=== PATIENT | female | born 1940 | race Caucasian/White ===

== ENCOUNTER 2022-07-24 11:35 | Inpatient (IN) | payer MEDICARE, OTHER ==
[2022-07-24] MEDS ORDERED: Magnesium Hydroxide 400 MG/5 ML Susp 30 ML Cup PO PRN (15:12)
[2022-07-24] MEDS ORDERED: Cyclobenzaprine 10 MG Tab PO PRN (15:12)
[2022-07-24] MEDS ORDERED: hydrOXYzine HCl 25 MG Tab PO PRN (15:12)
[2022-07-24] MEDS ORDERED: diphenhydrAMINE 25 MG Cap PO PRN (15:12)
[2022-07-24] MEDS: Acetaminophen/HYDROcodone 325-5 MG Tab PO PRN (15:46)
[2022-07-24] MEDS: Ascorbic Acid 500 MG Tab PO SCH (20:45)
[2022-07-24] MEDS ORDERED: Docusate Sodium 100 MG Cap PO SCH (21:00)
[2022-07-25 06:55] LABS: ANION GAP 14.9 mmol/L (5-15)
[2022-07-25] MEDS ORDERED: Bisacodyl 5 MG Tab PO PRN (08:20)
[2022-07-25] MEDS: Aspirin 81 MG Tab.EC PO SCH (08:23)
[2022-07-25] MEDS: Celecoxib 100 MG Cap PO SCH (08:24)
[2022-07-25] MEDS: Multivitamin Tab PO SCH (08:24)
[2022-07-25] MEDS: Docusate Sodium 100 MG Cap PO SCH (08:28)
[2022-07-25] MEDS ORDERED: Bisacodyl 5 MG Tab PO SCH (09:00)
[2022-07-25] MEDS ORDERED: Ferrous Sulfate 325 MG Tab PO SCH (09:00)
[2022-07-25] MEDS: Ascorbic Acid 500 MG Tab PO SCH ×2 (11:05→20:04)
[2022-07-25] MEDS: Acetaminophen 325 MG Tab PO PRN (15:40)
[2022-07-25] MEDS: Acetaminophen/HYDROcodone 325-5 MG Tab PO PRN (20:03)
[2022-07-26] MEDS: Acetaminophen/HYDROcodone 325-5 MG Tab PO PRN (06:27)
[2022-07-26] MEDS: Multivitamin Tab PO SCH (08:18)
[2022-07-26] MEDS: Celecoxib 100 MG Cap PO SCH (08:18)
[2022-07-26] MEDS: Docusate Sodium 100 MG Cap PO SCH (08:18)
[2022-07-26] MEDS: Aspirin 81 MG Tab.EC PO SCH (08:18)
[2022-07-26] MEDS: Ascorbic Acid 500 MG Tab PO SCH ×2 (08:18→20:05)
[2022-07-26] MEDS: Acetaminophen 325 MG Tab PO PRN ×2 (13:09→20:05)
[2022-07-27] MEDS: Celecoxib 100 MG Cap PO SCH (08:08)
[2022-07-27] MEDS: Aspirin 81 MG Tab.EC PO SCH (08:08)
[2022-07-27] MEDS: Ascorbic Acid 500 MG Tab PO SCH ×2 (08:08→20:46)
[2022-07-27] MEDS: Multivitamin Tab PO SCH (08:08)
[2022-07-27] MEDS: Docusate Sodium 100 MG Cap PO SCH (08:08)
[2022-07-27] MEDS: Acetaminophen 325 MG Tab PO PRN ×2 (16:15→20:47)
[2022-07-28] MEDS: Ascorbic Acid 500 MG Tab PO SCH ×2 (09:37→20:17)
[2022-07-28] MEDS: Celecoxib 100 MG Cap PO SCH (09:37)
[2022-07-28] MEDS: Multivitamin Tab PO SCH (09:37)
[2022-07-28] MEDS: Aspirin 81 MG Tab.EC PO SCH (09:37)
[2022-07-28] MEDS: Docusate Sodium 100 MG Cap PO SCH (09:37)
[2022-07-28] MEDS: Acetaminophen 325 MG Tab PO PRN ×2 (09:43→20:18)
[2022-07-29 07:29] LABS: ANION GAP 13.8 mmol/L (5-15)
[2022-07-29] MEDS: Multivitamin Tab PO SCH (08:29)
[2022-07-29] MEDS: Aspirin 81 MG Tab.EC PO SCH (08:29)
[2022-07-29] MEDS: Docusate Sodium 100 MG Cap PO SCH (08:29)
[2022-07-29] MEDS: Ascorbic Acid 500 MG Tab PO SCH ×2 (08:29→20:32)
[2022-07-29] MEDS: Celecoxib 100 MG Cap PO SCH (08:29)
[2022-07-29] MEDS: Acetaminophen 325 MG Tab PO PRN ×2 (13:47→20:32)
[2022-07-30] MEDS: Aspirin 81 MG Tab.EC PO SCH (08:27)
[2022-07-30] MEDS: Docusate Sodium 100 MG Cap PO SCH (08:27)
[2022-07-30] MEDS: Ascorbic Acid 500 MG Tab PO SCH (08:27)
[2022-07-30] MEDS: Multivitamin Tab PO SCH (08:27)
[2022-07-30] MEDS: Celecoxib 100 MG Cap PO SCH (08:27)
== END 2022-07-30 10:10 | disposition home or self-care (01) | DRG 948 ==
LOC: VM.MS 11:43
PROVIDERS: ADMIT Family Medicine; ATTEND Family Medicine
DX: R53.1 Weakness (principal); D50.0 Iron deficiency anemia secondary to blood loss (chronic); F41.9 Anxiety disorder, unspecified; G43.909 Migraine, unspecified, not intractable, without status migrainosus; Z47.1 Aftercare following joint replacement surgery; Z96.651 Presence of right artificial knee joint; R73.9 Hyperglycemia, unspecified; I10 Essential (primary) hypertension; E78.5 Hyperlipidemia, unspecified; M54.2 Cervicalgia; G89.29 Other chronic pain; E78.00 Pure hypercholesterolemia, unspecified; R41.0 Disorientation, unspecified; Z90.49 Acquired absence of other specified parts of digestive tract; Z79.82 Long term (current) use of aspirin; Z79.899 Other long term (current) drug therapy
CPT/HCPCS: 36415; 80048; 80053; 81001; 85025; 97110-GP; 97116-GP; 97161-GP; 97165-GO; 97530-GO; 97535-GO; A9270-GY

== ENCOUNTER 2023-11-06 08:27 | Emergency (ER) | payer MEDICARE, OTHER ==
[2023-11-06 09:35] LABS: BASOPHILS PERCENT AUTO 0.3 % (0.2-1.2); EOSINOPHILS ABSOLUTE AUTO 0.3 x10^3/uL (0.0-0.5); HEMATOCRIT 43.9 % (33.0-47.0); HEMOGLOBIN 14.4 g/dL (12.0-16.0); IMMATURE GRAN ABSOLUTE AUTO 0.04 x10^3/uL (0.00-0.07); LYMPHOCYTES ABSOLUTE AUTO 1.5 x10^3/uL (1.0-4.8); LYMPHOCYTES PERCENT AUTO 11.9 % (25.0-50.0); MEAN CORPUSCULAR HEMOGLOBIN 29.4 pg (26.0-32.0); MEAN CORPUSCULAR HGB CONC 32.8 g/dL (32.0-36.0); MEAN CORPUSCULAR VOLUME 89.6 fL (78.0-93.0); MONOCYTES ABSOLUTE AUTO 0.9 x10^3/uL (0.0-0.8); MONOCYTES PERCENT AUTO 6.8 % (2.0-11.0); NEUTROPHILS ABSOLUTE AUTO 10.1 x10^3/uL (1.8-7.7); NEUTROPHILS PERCENT AUTO 78.7 % (50.0-80.0); PLATELET COUNT,PLT 330 x10^3/uL (130-400); WHITE BLOOD CELL COUNT,WBC 12.9 x10^3/uL (4.0-10.0)
[2023-11-06 09:41] LABS: CORONAVIRUS COVID-19 NAA NEGATIVE (NEGATIVE); INFLUENZA A NAA NEGATIVE (NEGATIVE); INFLUENZA B NAA NEGATIVE (NEGATIVE); RESPIRATORY SYNCYTIAL VIR NAA NEGATIVE (NEGATIVE)
[2023-11-06 09:49] LABS: ANION GAP 13.2 mmol/L (5-15); CALCIUM 9.5 mg/dL (8.5-10.1); CREATININE 0.9 mg/dL (0.55-1.02); EST CRCL DRUG DOSING (CG) 38.77 mL/min; POTASSIUM,K 4.2 mmol/L (3.5-5.1)
[2023-11-06] MEDS: cefTRIAXone 1 GM Vial IM ONE (10:04)
== END 2023-11-06 10:20 | disposition home or self-care (01) ==
LOC: VM.ED 08:27
DX: J18.9 Pneumonia, unspecified organism (principal); Z88.8 Allergy status to other drugs, medicaments and biological substances; Z79.82 Long term (current) use of aspirin; Z79.899 Other long term (current) drug therapy
CPT/HCPCS: 0241U; 36415; 71046; 80048; 85025; 96372; 99283; J0696; 99284

== ENCOUNTER 2024-02-02 08:59 | Emergency (ER) | payer MEDICARE | END 2024-02-02 11:20 | disposition home or self-care (01) | LOC: VM.ED 08:59 → SUPCPDRO 08:59 → VM.ED 11:20 | DX: S46.912A Strain of unspecified muscle, fascia and tendon at shoulder and upper arm level, left arm, initial encounter (principal); S00.212A Abrasion of left eyelid and periocular area, initial encounter; Z88.8 Allergy status to other drugs, medicaments and biological substances; Z79.899 Other long term (current) drug therapy; Z79.82 Long term (current) use of aspirin; W19.XXXA Unspecified fall, initial encounter | CPT/HCPCS: 70450; 73030-LT; 99283; 99285 ==

== ENCOUNTER 2024-03-18 18:03 | Emergency (ER) | payer MEDICARE ==
[2024-03-18] MEDS ORDERED: Sodium Chloride 0.9% 10 ML Syringe FLUSH PRN (18:09)
[2024-03-18 18:25] LABS: BASOPHILS PERCENT AUTO 0.3 % (0.2-1.2); EOSINOPHILS ABSOLUTE AUTO 0.2 x10^3/uL (0.0-0.5); EOSINOPHILS PERCENT AUTO 1.6 % (0.0-4.0); HEMATOCRIT 42.4 % (33.0-47.0); HEMOGLOBIN 14.2 g/dL (12.0-16.0); LYMPHOCYTES PERCENT AUTO 17.1 % (25.0-50.0); MEAN CORPUSCULAR HGB CONC 33.5 g/dL (32.0-36.0); MEAN CORPUSCULAR VOLUME 89.6 fL (78.0-93.0); MONOCYTES ABSOLUTE AUTO 0.6 x10^3/uL (0.0-0.8); MONOCYTES PERCENT AUTO 5.3 % (2.0-11.0); NEUTROPHILS ABSOLUTE AUTO 8.6 x10^3/uL (1.8-7.7); NEUTROPHILS PERCENT AUTO 74.8 % (50.0-80.0); PLATELET COUNT,PLT 326 x10^3/uL (130-400); RED BLOOD CELL COUNT 4.73 x10^6/uL (4.00-5.50); WHITE BLOOD CELL COUNT,WBC 11.5 x10^3/uL (4.0-10.0)
[2024-03-18] MEDS: Ondansetron 4 MG/2 ML SDV IVPUSH ONE (18:46)
[2024-03-18] MEDS: Morphine 2 MG/ML SYRINGE IVPUSH ONE ×2 (18:46→20:04)
[2024-03-18 18:50] LABS: A/G RATIO 1.14; ALANINE AMINOTRANSFERASE,ALT 19 U/L (14-59); ALBUMIN 4.2 g/dL (3.4-5.0); ALKALINE PHOSPHATASE 84 U/L (46-116); ASPARTATE AMNIOTRANSFERASE,AST 19 U/L (15-37); BILIRUBIN TOTAL 1.4 mg/dL (0.2-1.0); BLOOD UREA NITROGEN,BUN 20 mg/dL (7-18); CALCIUM 9.4 mg/dL (8.5-10.1); CARBON DIOXIDE,CO2 26 mmol/L (21-32); CHLORIDE,CL 103 mmol/L (98-107); CREATININE 1.1 mg/dL (0.55-1.02); GLUCOSE RANDOM 118 mg/dL (70-99); POTASSIUM,K 3.7 mmol/L (3.5-5.1); PROTEIN TOTAL,TP 7.9 g/dL (6.4-8.2); SODIUM,NA 142 mmol/L (136-145)
[2024-03-18 18:53] LABS: ANION GAP 16.7 mmol/L (5-15); ESTIMATED GFR 50 mL/min (>=60)
== END 2024-03-18 22:37 | disposition short-term general hospital (02) ==
LOC: VM.ED 18:03
DX: S72.001A Fracture of unspecified part of neck of right femur, initial encounter for closed fracture (principal); R55 Syncope and collapse; Z79.899 Other long term (current) drug therapy; Z79.82 Long term (current) use of aspirin; Z88.8 Allergy status to other drugs, medicaments and biological substances; X58.XXXA Exposure to other specified factors, initial encounter
CPT/HCPCS: 36415; 80053; 84484; 85025; 93005; 96374; 96375; 96376; 99285; J2270; J2405; 70450; 93010; 99284

== ENCOUNTER 2024-03-24 11:48 | Inpatient (IN) | payer MEDICARE ==
[2024-03-24 16:32] LABS: APPEARANCE,URINE CLOUDY (CLEAR); BILIRUBIN,URINE SMALL (NEGATIVE); COLOR,URINE AMBER (YELLOW); GLUCOSE,URINE NEGATIVE (NEGATIVE); KETONES,URINE NEGATIVE (NEGATIVE); LEUKOCYTE ESTERASE,URINE SMALL (NEGATIVE); NITRITE,URINE NEGATIVE (NEGATIVE); OCCULT BLOOD,URINE TRACE-INTACT (NEGATIVE); PH,URINE 5.5 (5.0-8.0); PROTEIN,URINE NEGATIVE (NEGATIVE); UROBILINOGEN,URINE 0.2 EU/dL (0.2)
[2024-03-24 16:42] LABS: BACTERIA,URINE FEW /HPF (NOT SEEN); MUCUS,URINE MODERATE /LPF (NOT SEEN); RBC,URINE 0-5 /HPF (NOT SEEN); SQUAMOUS EPITHELIAL CELLS,UR MODERATE /HPF (NOT SEEN); YEAST BUDDING,URINE FEW /HPF (NONE - FEW)
[2024-03-24] MEDS: Sennosides/Docusate Sodium 50-8.6 MG Tab PO SCH (20:07)
[2024-03-24] MEDS: Acetaminophen 500 MG Tab PO PRN (20:07)
[2024-03-24] MEDS: Enoxaparin 40 MG/0.4 ML Syringe SUBCUT SCH (20:08)
[2024-03-24] MEDS: Melatonin 3 MG Tab PO SCH (20:08)
[2024-03-24] MEDS: Latanoprost 0.005% Ophth Soln 2.5 ML Bottle EYEBOTH SCH (20:09)
[2024-03-25] MEDS: Magnesium Hydroxide 400 MG/5 ML Susp 30 ML Cup PO PRN (05:06)
[2024-03-25] MEDS: oxyCODONE 5 MG Tab PO PRN (05:06)
[2024-03-25 06:52] LABS: BASOPHILS ABSOLUTE AUTO 0.1 x10^3/uL (0.0-0.2); BASOPHILS PERCENT AUTO 0.7 % (0.2-1.2); EOSINOPHILS ABSOLUTE AUTO 0.5 x10^3/uL (0.0-0.5); EOSINOPHILS PERCENT AUTO 5.4 % (0.0-4.0); HEMATOCRIT 39.3 % (33.0-47.0); HEMOGLOBIN 13.2 g/dL (12.0-16.0); LYMPHOCYTES ABSOLUTE AUTO 1.5 x10^3/uL (1.0-4.8); LYMPHOCYTES PERCENT AUTO 17.2 % (25.0-50.0); MEAN CORPUSCULAR HEMOGLOBIN 30.3 pg (26.0-32.0); MEAN CORPUSCULAR HGB CONC 33.6 g/dL (32.0-36.0); MEAN CORPUSCULAR VOLUME 90.1 fL (78.0-93.0); MONOCYTES ABSOLUTE AUTO 0.7 x10^3/uL (0.0-0.8); MONOCYTES PERCENT AUTO 7.7 % (2.0-11.0); NEUTROPHILS ABSOLUTE AUTO 6.1 x10^3/uL (1.8-7.7); NEUTROPHILS PERCENT AUTO 67.9 % (50.0-80.0); PLATELET COUNT,PLT 359 x10^3/uL (130-400); RED BLOOD CELL COUNT 4.36 x10^6/uL (4.00-5.50)
[2024-03-25 07:10] LABS: A/G RATIO 0.84; ALBUMIN 3.2 g/dL (3.4-5.0); BILIRUBIN TOTAL 1.6 mg/dL (0.2-1.0); CREATININE 0.9 mg/dL (0.55-1.02); EST CRCL DRUG DOSING (CG) 38.77 mL/min; POTASSIUM,K 3.6 mmol/L (3.5-5.1)
[2024-03-25 07:14] LABS: ANION GAP 10.6 mmol/L (5-15)
[2024-03-25] MEDS: Metoprolol Succinate 25 MG Tab.ER PO SCH (09:32)
[2024-03-25] MEDS: Aspirin 81 MG Tab.EC PO SCH (09:33)
[2024-03-25] MEDS: Cyanocobalamin (Vitamin B12) 1,000 MCG Tab PO SCH (09:33)
[2024-03-25] MEDS: Multivitamin Tab PO SCH (09:33)
[2024-03-25] MEDS: Bisacodyl 5 MG Tab PO PRN (09:35)
[2024-03-25] MEDS: Polyethylene Glycol 3350 Powder 17 GM Packet PO PRN (09:35)
[2024-03-28 07:38] LABS: HEMOGLOBIN 13.4 g/dL (12.0-16.0); MEAN CORPUSCULAR HEMOGLOBIN 29.6 pg (26.0-32.0); MEAN CORPUSCULAR HGB CONC 32.7 g/dL (32.0-36.0); MEAN CORPUSCULAR VOLUME 90.5 fL (78.0-93.0); RED BLOOD CELL COUNT 4.53 x10^6/uL (4.00-5.50); WHITE BLOOD CELL COUNT,WBC 11.9 x10^3/uL (4.0-10.0)
[2024-03-28 07:55] LABS: CALCIUM 9.2 mg/dL (8.5-10.1); EST CRCL DRUG DOSING (CG) 34.9 mL/min; POTASSIUM,K 3.6 mmol/L (3.5-5.1)
[2024-03-28 08:03] LABS: ANION GAP 10.6 mmol/L (5-15)
[2024-03-30 11:44] LABS: APPEARANCE,URINE CLOUDY (CLEAR); BILIRUBIN,URINE NEGATIVE (NEGATIVE); COLOR,URINE YELLOW (YELLOW); GLUCOSE,URINE NEGATIVE (NEGATIVE); KETONES,URINE NEGATIVE (NEGATIVE); LEUKOCYTE ESTERASE,URINE LARGE (NEGATIVE); NITRITE,URINE POSITIVE (NEGATIVE); OCCULT BLOOD,URINE SMALL (NEGATIVE); PH,URINE 5.5 (5.0-8.0); PROTEIN,URINE NEGATIVE (NEGATIVE); UROBILINOGEN,URINE 0.2 EU/dL (0.2)
[2024-03-30 11:59] LABS: AMORPHOUS SEDIMENT,URINE FEW; BACTERIA,URINE MANY /HPF (NOT SEEN); MUCUS,URINE FEW /LPF (NOT SEEN); SQUAMOUS EPITHELIAL CELLS,UR FEW /HPF (NOT SEEN); WBC,URINE >100 /HPF (NOT SEEN)
[2024-03-30] MEDS: Nitrofurantoin Monohydrate/Macrocrystalline 100 MG Cap PO ONE (20:45)
[2024-03-31 07:14] LABS: HEMATOCRIT 38.2 % (33.0-47.0); HEMOGLOBIN 12.6 g/dL (12.0-16.0); MEAN CORPUSCULAR HEMOGLOBIN 30.1 pg (26.0-32.0); MEAN CORPUSCULAR VOLUME 91.2 fL (78.0-93.0); RED BLOOD CELL COUNT 4.19 x10^6/uL (4.00-5.50); WHITE BLOOD CELL COUNT,WBC 10.1 x10^3/uL (4.0-10.0)
[2024-03-31] MEDS: Nitrofurantoin Monohydrate/Macrocrystalline 100 MG Cap PO SCH (10:27)
[2024-04-01] MEDS: Sennosides/Docusate Sodium 50-8.6 MG Tab PO SCH (20:32)
[2024-04-04 06:58] LABS: HEMATOCRIT 37.6 % (33.0-47.0); HEMOGLOBIN 12.5 g/dL (12.0-16.0); MEAN CORPUSCULAR HGB CONC 33.2 g/dL (32.0-36.0); MEAN CORPUSCULAR VOLUME 90.4 fL (78.0-93.0); RED BLOOD CELL COUNT 4.16 x10^6/uL (4.00-5.50); WHITE BLOOD CELL COUNT,WBC 9.2 x10^3/uL (4.0-10.0)
[2024-04-04 07:05] LABS: CALCIUM 8.9 mg/dL (8.5-10.1); CREATININE 0.9 mg/dL (0.55-1.02); EST CRCL DRUG DOSING (CG) 38.77 mL/min; POTASSIUM,K 4.1 mmol/L (3.5-5.1)
[2024-04-04 07:08] LABS: ANION GAP 11.1 mmol/L (5-15)
[2024-04-07 07:43] LABS: HEMATOCRIT 37.8 % (33.0-47.0); HEMOGLOBIN 12.4 g/dL (12.0-16.0); MEAN CORPUSCULAR HEMOGLOBIN 29.9 pg (26.0-32.0); MEAN CORPUSCULAR HGB CONC 32.8 g/dL (32.0-36.0); MEAN CORPUSCULAR VOLUME 91.1 fL (78.0-93.0); RED BLOOD CELL COUNT 4.15 x10^6/uL (4.00-5.50); WHITE BLOOD CELL COUNT,WBC 7.3 x10^3/uL (4.0-10.0)
[2024-04-08] MEDS: Donepezil 5 MG Tab PO SCH (20:36)
[2024-04-10 08:08] LABS: HEMATOCRIT 41.4 % (33.0-47.0); HEMOGLOBIN 13.7 g/dL (12.0-16.0); MEAN CORPUSCULAR HEMOGLOBIN 29.9 pg (26.0-32.0); MEAN CORPUSCULAR HGB CONC 33.1 g/dL (32.0-36.0); MEAN CORPUSCULAR VOLUME 90.4 fL (78.0-93.0); RED BLOOD CELL COUNT 4.58 x10^6/uL (4.00-5.50); WHITE BLOOD CELL COUNT,WBC 7.5 x10^3/uL (4.0-10.0)
[2024-04-13 06:59] LABS: HEMOGLOBIN 12.7 g/dL (12.0-16.0); MEAN CORPUSCULAR HEMOGLOBIN 30.3 pg (26.0-32.0); MEAN CORPUSCULAR HGB CONC 33.4 g/dL (32.0-36.0); MEAN CORPUSCULAR VOLUME 90.7 fL (78.0-93.0); RED BLOOD CELL COUNT 4.19 x10^6/uL (4.00-5.50); WHITE BLOOD CELL COUNT,WBC 8.1 x10^3/uL (4.0-10.0)
[2024-04-16 08:30] LABS: HEMATOCRIT 39.6 % (33.0-47.0); HEMOGLOBIN 13.2 g/dL (12.0-16.0); MEAN CORPUSCULAR HEMOGLOBIN 30.2 pg (26.0-32.0); MEAN CORPUSCULAR HGB CONC 33.3 g/dL (32.0-36.0); MEAN CORPUSCULAR VOLUME 90.6 fL (78.0-93.0); RED BLOOD CELL COUNT 4.37 x10^6/uL (4.00-5.50); WHITE BLOOD CELL COUNT,WBC 8.5 x10^3/uL (4.0-10.0)
[2024-04-19 07:20] LABS: A/G RATIO 0.86; ALBUMIN 3.2 g/dL (3.4-5.0); CALCIUM 9.1 mg/dL (8.5-10.1); CREATININE 0.9 mg/dL (0.55-1.02); EST CRCL DRUG DOSING (CG) 38.12 mL/min; PROTEIN TOTAL,TP 6.9 g/dL (6.4-8.2)
[2024-04-19 08:23] LABS: BASOPHILS ABSOLUTE AUTO 0.1 x10^3/uL (0.0-0.2); BASOPHILS PERCENT AUTO 0.9 % (0.2-1.2); EOSINOPHILS ABSOLUTE AUTO 0.4 x10^3/uL (0.0-0.5); EOSINOPHILS PERCENT AUTO 4.4 % (0.0-4.0); HEMATOCRIT 39.2 % (33.0-47.0); IMMATURE GRAN ABSOLUTE AUTO 0.03 x10^3/uL (0.00-0.07); LYMPHOCYTES PERCENT AUTO 22.9 % (25.0-50.0); MEAN CORPUSCULAR HEMOGLOBIN 29.9 pg (26.0-32.0); MEAN CORPUSCULAR HGB CONC 33.2 g/dL (32.0-36.0); MEAN CORPUSCULAR VOLUME 90.1 fL (78.0-93.0); MONOCYTES ABSOLUTE AUTO 0.6 x10^3/uL (0.0-0.8); MONOCYTES PERCENT AUTO 7.1 % (2.0-11.0); NEUTROPHILS ABSOLUTE AUTO 5.7 x10^3/uL (1.8-7.7); NEUTROPHILS PERCENT AUTO 64.4 % (50.0-80.0); PLATELET COUNT,PLT 343 x10^3/uL (130-400); RED BLOOD CELL COUNT 4.35 x10^6/uL (4.00-5.50); WHITE BLOOD CELL COUNT,WBC 8.8 x10^3/uL (4.0-10.0)
[2024-04-22 06:50] LABS: BASOPHILS ABSOLUTE AUTO 0.1 x10^3/uL (0.0-0.2); BASOPHILS PERCENT AUTO 0.8 % (0.2-1.2); EOSINOPHILS ABSOLUTE AUTO 0.4 x10^3/uL (0.0-0.5); HEMATOCRIT 39.1 % (33.0-47.0); IMMATURE GRAN ABSOLUTE AUTO 0.03 x10^3/uL (0.00-0.07); LYMPHOCYTES ABSOLUTE AUTO 2.3 x10^3/uL (1.0-4.8); LYMPHOCYTES PERCENT AUTO 24.9 % (25.0-50.0); MEAN CORPUSCULAR HEMOGLOBIN 29.8 pg (26.0-32.0); MEAN CORPUSCULAR HGB CONC 33.2 g/dL (32.0-36.0); MEAN CORPUSCULAR VOLUME 89.7 fL (78.0-93.0); MONOCYTES ABSOLUTE AUTO 0.7 x10^3/uL (0.0-0.8); MONOCYTES PERCENT AUTO 7.3 % (2.0-11.0); NEUTROPHILS ABSOLUTE AUTO 5.8 x10^3/uL (1.8-7.7); NEUTROPHILS PERCENT AUTO 62.7 % (50.0-80.0); PLATELET COUNT,PLT 344 x10^3/uL (130-400); RED BLOOD CELL COUNT 4.36 x10^6/uL (4.00-5.50); WHITE BLOOD CELL COUNT,WBC 9.2 x10^3/uL (4.0-10.0)
[2024-04-24] MEDS: Latanoprost 0.005% Ophth Soln 2.5 ML Bottle EYEBOTH SCH (21:31)
[2024-04-25 07:25] LABS: BASOPHILS ABSOLUTE AUTO 0.1 x10^3/uL (0.0-0.2); BASOPHILS PERCENT AUTO 0.8 % (0.2-1.2); EOSINOPHILS ABSOLUTE AUTO 0.4 x10^3/uL (0.0-0.5); HEMATOCRIT 40.6 % (33.0-47.0); HEMOGLOBIN 13.2 g/dL (12.0-16.0); IMMATURE GRAN ABSOLUTE AUTO 0.03 x10^3/uL (0.00-0.07); LYMPHOCYTES ABSOLUTE AUTO 2.6 x10^3/uL (1.0-4.8); LYMPHOCYTES PERCENT AUTO 29.9 % (25.0-50.0); MEAN CORPUSCULAR HEMOGLOBIN 29.7 pg (26.0-32.0); MEAN CORPUSCULAR HGB CONC 32.5 g/dL (32.0-36.0); MEAN CORPUSCULAR VOLUME 91.2 fL (78.0-93.0); MONOCYTES ABSOLUTE AUTO 0.5 x10^3/uL (0.0-0.8); MONOCYTES PERCENT AUTO 5.8 % (2.0-11.0); NEUTROPHILS ABSOLUTE AUTO 5.1 x10^3/uL (1.8-7.7); NEUTROPHILS PERCENT AUTO 59.2 % (50.0-80.0); PLATELET COUNT,PLT 342 x10^3/uL (130-400); RED BLOOD CELL COUNT 4.45 x10^6/uL (4.00-5.50); WHITE BLOOD CELL COUNT,WBC 8.7 x10^3/uL (4.0-10.0)
[2024-04-28 06:40] LABS: BASOPHILS ABSOLUTE AUTO 0.1 x10^3/uL (0.0-0.2); BASOPHILS PERCENT AUTO 0.7 % (0.2-1.2); EOSINOPHILS ABSOLUTE AUTO 0.4 x10^3/uL (0.0-0.5); EOSINOPHILS PERCENT AUTO 4.3 % (0.0-4.0); HEMATOCRIT 39.3 % (33.0-47.0); IMMATURE GRAN ABSOLUTE AUTO 0.02 x10^3/uL (0.00-0.07); LYMPHOCYTES ABSOLUTE AUTO 2.8 x10^3/uL (1.0-4.8); LYMPHOCYTES PERCENT AUTO 33.7 % (25.0-50.0); MEAN CORPUSCULAR HEMOGLOBIN 29.8 pg (26.0-32.0); MEAN CORPUSCULAR HGB CONC 33.1 g/dL (32.0-36.0); MEAN CORPUSCULAR VOLUME 90.1 fL (78.0-93.0); MONOCYTES ABSOLUTE AUTO 0.5 x10^3/uL (0.0-0.8); MONOCYTES PERCENT AUTO 6.3 % (2.0-11.0); NEUTROPHILS ABSOLUTE AUTO 4.6 x10^3/uL (1.8-7.7); NEUTROPHILS PERCENT AUTO 54.8 % (50.0-80.0); PLATELET COUNT,PLT 332 x10^3/uL (130-400); RED BLOOD CELL COUNT 4.36 x10^6/uL (4.00-5.50); WHITE BLOOD CELL COUNT,WBC 8.4 x10^3/uL (4.0-10.0)
[2024-05-01 08:12] LABS: BASOPHILS ABSOLUTE AUTO 0.1 x10^3/uL (0.0-0.2); EOSINOPHILS ABSOLUTE AUTO 0.4 x10^3/uL (0.0-0.5); EOSINOPHILS PERCENT AUTO 4.9 % (0.0-4.0); HEMATOCRIT 40.9 % (33.0-47.0); HEMOGLOBIN 13.4 g/dL (12.0-16.0); IMMATURE GRAN ABSOLUTE AUTO 0.02 x10^3/uL (0.00-0.07); LYMPHOCYTES ABSOLUTE AUTO 2.3 x10^3/uL (1.0-4.8); MEAN CORPUSCULAR HEMOGLOBIN 29.7 pg (26.0-32.0); MEAN CORPUSCULAR HGB CONC 32.8 g/dL (32.0-36.0); MEAN CORPUSCULAR VOLUME 90.7 fL (78.0-93.0); MONOCYTES ABSOLUTE AUTO 0.5 x10^3/uL (0.0-0.8); MONOCYTES PERCENT AUTO 5.8 % (2.0-11.0); NEUTROPHILS ABSOLUTE AUTO 4.6 x10^3/uL (1.8-7.7); PLATELET COUNT,PLT 343 x10^3/uL (130-400); RED BLOOD CELL COUNT 4.51 x10^6/uL (4.00-5.50); WHITE BLOOD CELL COUNT,WBC 7.8 x10^3/uL (4.0-10.0)
== END 2024-05-06 09:15 | disposition home health service (06) | DRG 560 ==
LOC: VM.MS 11:48 → UNDODISIN 03-31 11:30
PROVIDERS: ADMIT Family Medicine; ATTEND Family Medicine
DX: S72.001D Fracture of unspecified part of neck of right femur, subsequent encounter for closed fracture with routine healing (principal); N39.0 Urinary tract infection, site not specified; Z66 Do not resuscitate; I10 Essential (primary) hypertension; E78.00 Pure hypercholesterolemia, unspecified; G89.29 Other chronic pain; M54.2 Cervicalgia; G47.00 Insomnia, unspecified; M17.11 Unilateral primary osteoarthritis, right knee; E53.8 Deficiency of other specified B group vitamins; B96.89 Other specified bacterial agents as the cause of diseases classified elsewhere; Z88.8 Allergy status to other drugs, medicaments and biological substances; Z86.16 Personal history of COVID-19; Z79.82 Long term (current) use of aspirin; Z90.89 Acquired absence of other organs; Z90.49 Acquired absence of other specified parts of digestive tract; Z79.899 Other long term (current) drug therapy; W01.0XXD Fall on same level from slipping, tripping and stumbling without subsequent striking against object, subsequent encounter
CPT/HCPCS: 36415; 80048; 80053; 81001; 82607; 85025; 85027; 87086; 87088; 87186; 95851-GO; 97110-GP; 97116-GP; 97129-GO; 97130-GO; 97161-GP; 97164-GP; 97165-GO; 97530-GO; 97535-GO; A9270-GY; J1650

== ENCOUNTER 2024-12-19 19:49 | Emergency (ER) | payer MEDICARE ==
[2024-12-19 20:13] LABS: BASOPHILS ABSOLUTE AUTO 0.1 x10^3/uL (0.0-0.2); EOSINOPHILS ABSOLUTE AUTO 0.3 x10^3/uL (0.0-0.5); EOSINOPHILS PERCENT AUTO 4.3 % (0.0-4.0); HEMATOCRIT 39.5 % (33.0-47.0); IMMATURE GRAN ABSOLUTE AUTO 0.01 x10^3/uL (0.00-0.07); LYMPHOCYTES ABSOLUTE AUTO 1.7 x10^3/uL (1.0-4.8); LYMPHOCYTES PERCENT AUTO 23.3 % (25.0-50.0); MEAN CORPUSCULAR HGB CONC 32.9 g/dL (32.0-36.0); MONOCYTES ABSOLUTE AUTO 0.6 x10^3/uL (0.0-0.8); MONOCYTES PERCENT AUTO 7.8 % (2.0-11.0); NEUTROPHILS ABSOLUTE AUTO 4.6 x10^3/uL (1.8-7.7); NEUTROPHILS PERCENT AUTO 63.5 % (50.0-80.0); PLATELET COUNT,PLT 277 x10^3/uL (130-400); RED BLOOD CELL COUNT 4.49 x10^6/uL (4.00-5.50); WHITE BLOOD CELL COUNT,WBC 7.2 x10^3/uL (4.0-10.0)
[2024-12-19 20:29] LABS: A/G RATIO 1.06; ALANINE AMINOTRANSFERASE,ALT 13 U/L (14-59); ALBUMIN 3.7 g/dL (3.4-5.0); ALKALINE PHOSPHATASE 78 U/L (46-116); ANION GAP 11.9 mmol/L (5-15); ASPARTATE AMNIOTRANSFERASE,AST 17 U/L (15-37); BILIRUBIN TOTAL 1.1 mg/dL (0.2-1.0); BLOOD UREA NITROGEN,BUN 33 mg/dL (7-18); CALCIUM 9.6 mg/dL (8.5-10.1); CARBON DIOXIDE,CO2 30 mmol/L (21-32); CHLORIDE,CL 103 mmol/L (98-107); CREATININE 1.2 mg/dL (0.55-1.02); ESTIMATED GFR 45 mL/min (>=60); GLUCOSE RANDOM 115 mg/dL (70-99); POTASSIUM,K 3.9 mmol/L (3.5-5.1); PROTEIN TOTAL,TP 7.2 g/dL (6.4-8.2); SODIUM,NA 141 mmol/L (136-145)
== END 2024-12-19 21:06 | disposition home or self-care (01) ==
LOC: VM.ED 19:49
DX: S00.03XA Contusion of scalp, initial encounter (principal); I10 Essential (primary) hypertension; E78.00 Pure hypercholesterolemia, unspecified; M19.90 Unspecified osteoarthritis, unspecified site; Z88.8 Allergy status to other drugs, medicaments and biological substances; Z79.82 Long term (current) use of aspirin; Z79.899 Other long term (current) drug therapy; Z90.49 Acquired absence of other specified parts of digestive tract; W19.XXXA Unspecified fall, initial encounter; Y92.009 Unspecified place in unspecified non-institutional (private) residence as the place of occurrence of the external cause
CPT/HCPCS: 70450; 80053; 84484; 85025; 93005; 93010; 99284